=== PATIENT | female | born 1960 | race Caucasian/White ===

== ENCOUNTER → 2017-11-14 | Outpatient (CLI) | payer BC ==
[2017-11-14 07:58] LABS: Basophils # (A) 0.1 k/uL (0-0.2); Basophils % (A) 1 %; Eosinophils # (A) 0.2 k/uL (0-0.7); Eosinophils % (A) 3 %; HCT 42.8 % (34.0-46.0); HGB 14.2 gm/dL (11.4-16.0); Lymphocytes # (A) 1.9 k/uL (1.0-4.8); Lymphocytes % (A) 36 %; MCH 31.5 pg (25.0-35.0); MCHC 33.1 g/dL (31.0-37.0); MCV 95.3 fL (80.0-100.0); Mean Platelet Volume 6.7; Monocytes # (A) 0.3 k/uL (0-1.0); Monocytes % (A) 5 %; Neutrophils # (A) 2.9 k/uL (1.3-7.7); Neutrophils % (A) 54 %; Platelet Count 220 k/uL (150-450); RBC 4.49 m/uL (3.80-5.40); WBC 5.4 k/uL (3.8-10.6)
[2017-11-14 08:18] LABS: Anion Gap 10 mmol/L; Blood Urea Nitrogen 11 mg/dL (7-17); Carbon Dioxide 24 mmol/L (22-30); Chloride 108 mmol/L (98-107); Glucose 86 mg/dL (74-99); Sodium 142 mmol/L (137-145)
== END | disposition home or self-care (01) ==
LOC: LABPAT 07:10
PROVIDERS: ATTEND Obstetrics & Gynecology
DX: Z01.812 Encounter for preprocedural laboratory examination (principal); N81.10 Cystocele, unspecified; N81.6 Rectocele
CPT/HCPCS: 36415; 80051; 82565; 82947; 84520; 85025

== ENCOUNTER 2017-11-24 07:17 | Observation (INO) | payer BC ==
[2017-11-17 11:11] VITALS: BMI 32.9
--- NOTE | 2017-11-20 14:45 | HP ---
HISTORY AND PHYSICAL DATE OF SERVICE: 11/20/2017 DATE OF SURGERY: 11/24/2017 HISTORY OF PRESENT ILLNESS: Brigitte is a 57-year-old, 2, para 0-0-2-0, admitted with complaint of significant vaginal bulging. She presented for her annual examination at which time she complained of significant bulging with discomfort. She underwent vaginal hysterectomy approximately 2 years ago at which time there was no other prolapse present. Examination bears out a grade 3 cystocele or rectocele, so it is unclear which it is as the patient was uncomfortable being examined in the office. She is interested in surgical repair having discussed other alternatives. PAST MEDICAL HISTORY: Significant only for irregular depression symptoms. PAST SURGICAL HISTORY: She has had cataract surgery as well as ear surgery many years ago. She also had tonsillectomy and tubal ligation. She underwent vaginal hysterectomy in 2016 and then she has had 2 elective interruptions of . There has been no apparent anesthetic concerns. OBSTETRICAL HISTORY: 2, para 0-0-2-0 with 2 elective interruptions of . GYNECOLOGIC HISTORY: Unremarkable with no history of any infections to include STDs. She is not currently sexually active, though wishes to retain the ability to be sexually active at a later date. FAMILY HISTORY: Noncontributory. SOCIAL HISTORY: The patient is and a nonsmoker. She denies any significant alcohol or any other social concerns. CURRENT MEDICATIONS: Include melatonin as needed and a multivitamin daily. ALLERGIES: No known drug allergies. REVIEW OF SYSTEMS: Confined to history of present illness. PHYSICAL EXAMINATION: In general, this is a well-developed, well-nourished white female in no acute distress. HEENT demonstrates PERRLA, EOMI, her oropharynx is clear. Her neck is supple and without adenopathy and the thyroid is normal to palpation. Her heart has a regular rhythm and rate without murmur. Her lungs are clear to auscultation bilaterally in all aguilar. Her abdomen is nondistended, has normoactive bowel sounds, is soft, nontender, and without any palpable masses, hepatosplenomegaly, or hernias. Her extremities are without any cyanosis, clubbing, or edema and are nontender to palpation bilaterally. Pelvic examination demonstrates normal external genitalia and BUS with an obvious bulge at the opening of the vagina. The origin of the bulge appears to be a cystocele, but the patient is uncomfortable with examination and will not allow significant enough evaluation to determine whether there is other defects present. ASSESSMENT AND PLAN: Symptomatic cystocele, possible rectocele: Discussed alternatives including the use of pessary versus observation. She has declined this in favor of proceeding with surgical repair. I have also discussed with her that the origin of the bulge will be determined at the time of surgery as she was uncomfortable with the examination. The risks and complications of the procedure or procedures have been thoroughly discussed including the risks for bleeding, bleeding requiring transfusion, infection, and injury to local structures to primarily include the bladder and/or rectum. She has understood all of this and agreed to proceed. The typical hospital and postoperative courses have been thoroughly explained. We are scheduled for the above repair on the morning of November 24, 2017. MMODL / IJN: [id number] /
[~2017-11-24 07:17] MED LIST: LIDOCAINE 1% 20 ML VIAL (10MG/ML) FOR IV START INTRADERMA PRN; ONDANSETRON 4 MG/2 ML VIAL IVP ONE; ceFAZolin IN SWFI 2 GM/20 ML SYRINGE IVP ONE
[2017-11-24] MEDS: LACTATED RINGERS 1,000 ML IV SCH ×3 (08:32→18:42)
[2017-11-24] MEDS ORDERED: DEXAMETHASONE SOD PHOSPHATE 10 MG/ML 1 ML VIAL IV ONE (08:32)
[2017-11-24] MEDS ORDERED: MIDAZOLAM 2 MG/2 ML VIAL ONE (09:20)
[2017-11-24] MEDS ORDERED: fentaNYL (PF) 50 MCG/ML 2 ML AMP ONE (09:20)
[2017-11-24] MEDS ORDERED: LIDOCAINE 1% INJ 10MG/ML (20 ML MDV) ONE (09:20)
[2017-11-24] MEDS ORDERED: PROPOFOL 10 MG/ML 20 ML VIAL IV ONE (09:20)
[2017-11-24] MEDS ORDERED: IBUPROFEN 600 MG TAB PO PRN (09:30)
[2017-11-24] MEDS ORDERED: ZOLPIDEM 5 MG TAB PO PRN (09:30)
[2017-11-24] MEDS ORDERED: Acetaminophen-Codeine 300-30mg TAB PO PRN ×2 (09:30)
[2017-11-24] MEDS ORDERED: diphenhydrAMINE 50 MG/ML 1 ML VIAL IVP PRN (09:30)
[2017-11-24] MEDS ORDERED: METOCLOPRAMIDE 5 MG/ML 2 ML VIAL IVP PRN (09:30)
[2017-11-24] MEDS ORDERED: ONDANSETRON 4 MG/2 ML VIAL IVP PRN (09:30)
[2017-11-24] MEDS ORDERED: SIMETHICONE 80 MG CHEWABLE PO PRN (09:30)
[2017-11-24] MEDS ORDERED: VASOPRESSIN 20 UNIT/ML 1 ML VIAL SQ ONE (09:48)
[2017-11-24] MEDS ORDERED: BACITRACIN 500 UNIT/GM OINT 28.4 GM TUBE TOPICAL ONE (09:48)
--- NOTE | 2017-11-24 10:17 | P.OP ---
Date of Procedure: 11/24/17 Preoperative Diagnosis: #1. Symptomatic rectocele Postoperative Diagnosis: Same plus #2. Enterocele Procedure(s) Performed: #1. Rectocele repair with contiguous enterocele repair Anesthesia: other (Gen. by LMA) Surgeon: Nabor Justin Lawn Care Specialist #1: Haydee Seaman Estimated Blood Loss (ml): 20 IV fluids (ml): 600 Urine output (ml): 100 Pathology: none sent Condition: stable Disposition: PACU Operative Findings: Preoperatively in the office, the patient would not allow adequate examination to determine the degree and type of prolapse present. Under anesthesia, it was discovered that she had primarily a grade 3 rectocele with relatively reasonable support of the bladder. There also appeared to be perhaps an enterocele present. This was confirmed intraoperatively and repaired contiguously. The uterus was surgically absent and the adnexa were nonpalpable. Description of Procedure: The patient was prepped and draped in usual fashion after general anesthesia was administered by the anesthesiologist. Examination under anesthesia demonstrated the findings as above with primarily a large rectocele present. The decision was made to proceed with rectocele repair and of not cystocele repair. Allis clamps were placed at the hymeneal ring on each side and a triangular shaped wedge of tissue removed over the perineal body after injecting the rectovaginal mucosa with diluted vasopressin solution. The rectovaginal mucosa was undermined in the midline using the Metzenbaum scissors and then divided. Allis clamps were placed along the margin of the dissection. Near the apex of the rectocele was discovered that there was a moderate enterocele present as well. It did appear that the peritoneal cavity was opened approximately 1 cm. After dissecting to the apex of the vagina, the rectovaginal mucosa was dissected from the underlying tissues both sharply and bluntly. After adequate dissection had been carried out bilaterally, serial Monica plication stitches were placed starting at the apex of the repair using 2- 0 PDS and firmly tied down. After a number of Monica plication stitches had been placed to close the entire defect with what appeared to be excellent resolution of the defect, the vaginal mucosa was trimmed bilaterally and discarded. The mucosa was then closed with a running locking stitch of 2-0 Vicryl starting at the apex with the final closure at the vagina of in standard fashion similar to repair of episiotomy. Estimated blood loss the entire case was approximately 20 mL. There were no complications. All sponge, instrument, and needle counts were correct. The vagina was then packed with one-inch iodophor gauze covered with bacitracin ointment and a Aviles catheter placed demonstrating clear urine.
[2017-11-24] MEDS: HYDROmorphone 0.5 MG/0.5 ML SYRINGE IVP PRN ×2 (10:34→10:40)
[2017-11-24] MEDS ORDERED: ACETAMINOPHEN IV (For NPO) 1,000 MG in EMPTY BAG 1 BAG IVPB ONE (11:00)
[2017-11-24] MEDS ORDERED: LACTATED RINGERS 1,000 ML IV ONE ×2 (11:12)
[2017-11-24] MEDS: KETOROLAC 30 MG/ML 1 ML VIAL IVP PRN (17:49)
[2017-11-24] MEDS: SENNOSIDES-DOCUSATE SODIUM 1 EACH TAB PO SCH (23:22)
[2017-11-25] MEDS: KETOROLAC 30 MG/ML 1 ML VIAL IVP PRN ×3 (00:18→23:44)
[2017-11-25] MEDS: LACTATED RINGERS 1,000 ML IV SCH ×3 (04:15→15:30)
[2017-11-25 07:41] LABS: Basophils % (A) 0 %; Eosinophils # (A) 0.1 k/uL (0-0.7); Eosinophils % (A) 1 %; HCT 37.8 % (34.0-46.0); HGB 12.3 gm/dL (11.4-16.0); Lymphocytes # (A) 2.2 k/uL (1.0-4.8); Lymphocytes % (A) 26 %; MCH 30.9 pg (25.0-35.0); MCHC 32.7 g/dL (31.0-37.0); MCV 94.6 fL (80.0-100.0); Mean Platelet Volume 7.2; Monocytes # (A) 0.5 k/uL (0-1.0); Monocytes % (A) 5 %; Neutrophils # (A) 5.6 k/uL (1.3-7.7); Neutrophils % (A) 66 %; Platelet Count 208 k/uL (150-450); WBC 8.4 k/uL (3.8-10.6)
--- NOTE | 2017-11-25 08:53 | P.DS ---
Providers Date of admission: 11/25/17 04:05 Expected date of discharge: 11/25/17 Attending physician: Nabor Justin Primary care physician: Rey Bustamante - Discharge Diagnosis(es) (1) Rectocele Current Visit: Yes Status: Acute Hospital Course: The patient is a 57-year-old 0 para 0 who was admitted with symptomatic prolapse. In the office, she did not tolerate the exam to the extent that I could identify the defect of the other was an obvious bulge at the opening of the vagina. She was counseled regarding the potential procedures for repair which she requested in favor of less aggressive treatment. She was taken the operating room where under anesthesia she was found to have a grade 3 rectocele present. In the process of repairing the rectocele she was also found to have a fairly large enterocele. The 2 repairs were closed concomitantly. The procedures were uncomplicated in nature. Her postoperative course was also uncomplicated though she had relatively low pulse and blood pressure in the postoperative phase. She was tolerating regular diet by the morning of postoperative day #1 and performing all activities of daily living. There was a small amount of vaginal bleeding in the morning of postoperative day #1 which was of uncertain origin given the lack of bleeding during the surgery. She was deemed stable for discharge on postoperative day #1 was discharged home to follow-up in the office in 2 weeks for a recheck in 6 weeks routinely. Discharge instructions included calling for any significantly increased bleeding or pain, fever, or anything else that concerned her. She was instructed to have nothing in the vagina for at least 6-8 weeks' time. She was lastly and, most importantly, instructed to do no heavy lifting over the course of the next 6-8 weeks. She understood her instructions and agrees to follow up as noted above. Discharge medications included only her home medications and any [id number] analgesics that she might choose. Discharge hemoglobin and hematocrit were 12.3 and 37.8 respectively. Procedures: #1. Rectocele repair with concomitant enterocele repair Patient Condition at Discharge: Stable Plan - Discharge Summary Discharge Rx Participant: Yes New Discharge Prescriptions: No Action Ibuprofen [Motrin] 400 mg PO Q6HR PRN PRN Reason: Pain Multivitamins, Thera [Multivitamin (formulary)] 1 tab PO DAILY Kelp 1 tab PO DAILY Turmeric Root Extract 735 mg PO DAILY Discharge Medication List Ibuprofen [Motrin] 400 mg PO Q6HR PRN 11/17/17 [History] Kelp 1 tab PO DAILY 11/17/17 [History] Multivitamins, Thera [Multivitamin (formulary)] 1 tab PO DAILY 11/17/17 [History ] Turmeric Root Extract 735 mg PO DAILY 11/25/17 [History] Follow up Appointment(s)/Referral(s): Nabor Justin MD [STAFF PHYSICIAN] - 2 Weeks Discharge Disposition: HOME SELF-CARE
[2017-11-25] MEDS: SENNOSIDES-DOCUSATE SODIUM 1 EACH TAB PO SCH ×2 (09:20→21:02)
[2017-11-25] MEDS ORDERED: ACETAMINOPHEN TAB 325 MG TAB PO PRN (09:33)
[2017-11-25 21:16] VITALS: RESP 16
[2017-11-26] MEDS: LACTATED RINGERS 1,000 ML IV SCH ×3 (07:16→11:34)
[2017-11-26 07:34] VITALS: BP 134/82; PULSE 64; TEMP 98.3
--- NOTE | 2017-11-26 08:28 | P.PN ---
Subjective Progress Note Date: 11/26/17 Principal diagnosis: Status post rectocele and enterocele repair The patient had been cleared for discharge as of yesterday morning but, upon being up and ambulatory, began to have significant vaginal bleeding. Packing was replaced at approximately the 12:30 in the afternoon after which time her bleeding was fairly minimal the remainder of the day. As result of the bleeding however, the patient was kept in the hospital and discharge canceled for further observation. She denies any significant bleeding overnight and otherwise has no other complaints or any pain. Objective - Vital Signs Vital signs: Vital Signs Temp 98.3 F 11/26/17 07:29 Pulse 64 11/26/17 07:29 Resp 16 11/26/17 07:29 BP 134/82 11/26/17 07:29 Pulse Ox 97 11/26/17 07:29 Intake & Output 11/25/17 11/26/17 11/26/17 18:59 06:59 18:59 Intake Total 750 Output Total 700 225 Balance 50 -225 Intake: Oral 750 Output: Urine 700 225 Other: Voiding Method Toilet Toilet # Voids 1 1 - Exam In general, this is a well-developed, well-nourished white female in no acute distress. Her abdomen is nondistended, soft, nontender, without masses. Her extremities are without any cyanosis, clubbing, or edema and are nontender to palpation bilaterally. Vaginal examination consists of removing of the vaginal packing which is not entirely soaked but is relatively blood-tinged. Short- term observation of the opening the vagina demonstrates no significant ongoing bleeding of any kind. - Labs CBC & Chem 7: 11/25/17 06:46 Assessment and Plan (1) Rectocele Current Visit: Yes Status: Acute Code(s): N81.6 - RECTOCELE SNOMED Code(s) : 295223544 Plan: Assuming no further bleeding occurs, patient will be discharged home later this morning. She was kept with nothing by mouth after midnight and will remain so until it is clear that no further bleeding is ongoing. This was done in preparation for the possibility of return to the operating room. If in 2 hours or so, she continues to be without any significant vaginal bleeding, her diet will be advanced and she will be discharged home. The remainder of the discharge summary remains unchanged from yesterday.
[2017-11-26] MEDS: SENNOSIDES-DOCUSATE SODIUM 1 EACH TAB PO SCH (09:14)
== END 2017-11-26 11:55 | disposition home or self-care (01) ==
LOC: OR 07:17 → 6PED 10:08 → OR 11-25 04:19
PROVIDERS: ADMIT Obstetrics & Gynecology; ATTEND Obstetrics & Gynecology
DX: N81.6 Rectocele (principal); N81.5 Vaginal enterocele; Z90.710 Acquired absence of both cervix and uterus; Z98.49 Cataract extraction status, unspecified eye; Z87.891 Personal history of nicotine dependence
CPT/HCPCS: 57250; 86900; 86901; 83605; 85025; 86850; G0378 ×2; J2250; J1100; J2765; J2405; J2001; J3010; J1885 ×2; J0131; J2704; J1170; J0690